=== PATIENT | female | born 1960 | race African-American/Black ===

== ENCOUNTER 2021-11-14 05:59 | Emergency (ER) | payer MEDICAID ==
[~2021-11-14] VITALS: Ht 152.4 cm; Wt 99.8 kg
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
--- NOTE | 2021-11-14 06:41 | NUR ---
DR. HERNANDEZ POINT OF CARE TECHNICIAN WITH [facility]
[2021-11-14] MEDS ORDERED: TDAP [DIPH/PERTUSSIS/TET] 0.5 ML VIAL IM ONE ×2 (07:00→07:02)
[2021-11-14] MEDS ORDERED: BACI28.42 TP (07:10)
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
[2021-11-14 07:19] VITALS: BP 165/78
== END 2021-11-14 07:19 | disposition home or self-care (01) ==
LOC: ER 06:14
DX: T23.202A Burn of second degree of left hand, unspecified site, initial encounter (principal); T23.112A Burn of first degree of left thumb (nail), initial encounter; T31.0 Burns involving less than 10% of body surface; I10 Essential (primary) hypertension; Z79.899 Other long term (current) drug therapy
CPT/HCPCS: 90715